=== PATIENT | male | born 1975 | race Caucasian/White ===

== ENCOUNTER → 2016-08-16 | Outpatient (CLI) | payer OTHER ==
[~2016-08-16] MED LIST: 'CLONIDINE0.1 MG PO; ACTOS45 M1 PO; ALPHAGAN P 10 M10 M1 OPH; AMLODIPINE BESYL5 MG PO; ASPIRIN ADULT L81 M1 PO; ATARAX25 MG PO; BACTRIM DS 8001 TA1 PO; BETIMOL5 M1 OP; CARVEDILOL12.5 MG PO; CEFDINIR300 MG PO; COMBIGAN 0.2%-010 ML OP; CYCLOGYL 1% OPH; ECONOPRED PLUS10 M1 OPH; ELIMITE 5%60 GM T; ERYTHROMYCIN5 MG/G2 OP; Econopred Plus 15 ML OPH; FIORINAL 325 MG1 CAP PO; GABAPENTIN100 M2 PO; GLUCOPHAGE1000 MG; GLUCOPHAGE1000 MG PO; GLUCOPHAGE500 MG PO; HUMALOG MIX 50/10 ML SC; HYDR25T PO; HYDROCODONE BIT1 T11 PO; KEFLEX500 MG PO; LEVOFLOXACIN500 MG PO; LISINOPRIL2.5 MG PO; LISINOPRIL20 MG PO; METFORMIN HCL500 MG PO; METFORMIN1000 MG PO; METFORMIN500 MG PO; MOTRIN800 MG PO; Metformin Hydr500 MG PO; OMNICEF300 MG PO; PRINIVIL10 MG PO; TRUSOPT 5 ML5 ML OPH; ULTRAM50 MG PO; ZOCOR20 MG PO; ZOFRAN ODT4 MG SL
[2016-08-16 09:59] LABS: BILIRUBIN NEGATIVE (NEGATIVE); BLOOD 2+ (NEGATIVE); CLARITY CLEAR (CLEAR); COLOR YELLOW (YELLOW); GLUCOSE 2+ (NEGATIVE); KETONE NEGATIVE (NEGATIVE); LEUKO ESTERASE NEGATIVE (NEGATIVE); NITRITE NEGATIVE (NEGATIVE); PH 5.5 (5.0-9.0); PROTEIN 3+ (NEGATIVE); SPECIFIC GRAVITY 1.025 (1.005-1.030); UROBILINOGEN 0.2 E.U./dl (0.2-1.0)
[2016-08-16 10:00] LABS: BASO # 0.1 10*3/uL (0.0-0.1); BASO % 0.8 % (0.0-1.0); EOS # 0.6 10*3/uL (0.0-0.4); EOS % 5.4 % (1.0-4.0); HEMATOCRIT 32.1 % (42.0-52.0); HEMOGLOBIN 10.4 g/dl (14.0-18.0); IG # 0.1 10*3/uL (0.0-0.1); LYMPH # 2.3 10*3/uL (1.3-4.4); LYMPH % 21.6 % (27.0-41.0); MEAN CELL VOLUME 84.9 fl (80.0-94.0); MEAN CORPUSCULAR HGB 27.5 pg (27.0-31.0); MEAN CORPUSCULAR HGB CONC 32.4 g/dl (33.0-37.0); MEAN PLATELET VOLUME 10.8 fl (9.6-12.3); MONO # 0.6 10*3/uL (0.1-1.0); MONO % 5.3 % (3.0-9.0); NEUT % 66.2 % (47.0-73.0); PLATELET COUNT AUTOMATED 279 10*3/uL (130-400); RED BLOOD COUNT 3.78 10*6/uL (4.50-5.90); RED CELL DISTRI WIDTH 14.2 % (0-14.5); WHITE BLOOD COUNT 10.6 10*3/uL (4.8-10.8)
[2016-08-16 10:05] LABS: BACTERIA TRACE; WBC 0-2 wbc/hpf (0-5)
[2016-08-16 10:22] LABS: ALBUMIN 2.5 gm/dl (3.1-4.5); PHOSPHOROUS 4.9 mg/dL (2.5-4.9); POTASSIUM 4.9 mmol/L (3.5-5.1)
[2016-08-16 11:41] LABS: PTH INTACT 149.1 pg/mL (14.0-72.0); VITAMIN D, 25-HYDROXY 11.3 ng/mL (30-100)
[2016-08-16 13:51] LABS: URINE TP/CRE RATIO 4.9 (<0.21)
== END | disposition home or self-care (01) ==
LOC: LAB 08-15 14:55
PROVIDERS: Internal Medicine Nephrology
DX: N18.3 Chronic kidney disease, stage 3 (moderate) (principal); N17.9 Acute kidney failure, unspecified

== ENCOUNTER 2016-09-06 10:42 | Inpatient (IN) | payer OTHER ==
[~2016-09-06] VITALS: Ht 180.3 cm; Wt 155.6 kg
--- NOTE | ~2016-09-06 | CON ---
[place], [place] REPORT OF CONSULTATION NAME: DUSTIN DENTON UNIT #: [id number] ROOM: 519 DOCTOR: SHANNA SWEET MD BIRTHDATE: [birth year] DOS: 09/07/2016 NEPHROLOGY CONSULTATION NOTE HISTORY OF PRESENT ILLNESS: The patient is a 41-year-old gentleman seen in renal consultation in the hospital. He is normally seen by Dr. Lim of our group and was just seen a couple weeks ago in the office. He has known proteinuric chronic kidney disease that is fairly advanced with a serum creatinine level that has been into the low 3s. His creatinine is actually slightly below his recent levels in July and August at 2.82 today. He presented to the hospital with increasing lower extremity edema and shortness of breath. This is significantly improved and he was started on diuresis, has made over 2-1/2 liters of urine output. In review of his outpatient labs and plans, serologic workup and possible biopsy was under works, but he feels well at this time and blood pressures are coming under fair control from yesterday. He does have some mild anemia, but overall is stating that his sugars are coming under better control compared to his remote past when he would have consistent blood sugars into the 300s and more. REVIEW OF SYSTEMS: Negative except for as per HPI. Past medical, family, and social history was reviewed from the H and P documented on 09/[address] Mariano. He had an echocardiogram completed, which showed a preserved EF of 55-60% and normal wall motion, mild mitral regurgitation noted. PHYSICAL EXAMINATION: VITAL SIGNS: Heart rates in the 80s-90s, respiratory rate 16-18, blood pressure 160s-170s/80s-90s, pulse ox 93-97% on room air, temp afebrile. GENERAL: Age appropriate gentleman, obese, but sitting in bed, semirecumbent without acute distress. HEENT: He has no scleral icterus. Extraocular muscles are intact. Pupils are equal. LUNGS: Fairly clear, but diminished at the bases. CARDIOVASCULAR: Regular rate. No audible rub, causes mild systolic murmur. EXTREMITIES: Has 2+ to 3+ edema of the lower extremities. ABDOMEN: Slightly distended and obese frame. No palpable tenderness, CVA tenderness or suprapubic tenderness. SKIN: Without diffuse rashes or breakdowns. GROSS NEUROLOGIC: Motor function and sensation is intact. LABORATORIES AND DIAGNOSTICS: Were reviewed from inpatient and outpatient records in detail, pertinent creatinine today is 2.82. Lytes are normal. A1c was 7. Troponins are negative x 3. 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 Last protein-creatinine ratio in August was 4.9 grams per gram. Certainly diabetic component is the most likely scenario. Further serologic workup and possible biopsy, plans per Dr. Lim as an outpatient. At this point, starting of a routine diuretic is likely necessary at this point. [place], [place] REPORT OF CONSULTATION NAME: DUSTIN DENTON UNIT #: [id number] ROOM: [facility] DOCTOR: SHANNA SWEET MD BIRTHDATE: [birth year] Continue blood pressure control and volume control and to keep him out of symptoms of congestive heart failure and volume overload with preserved ejection fraction. He has mild anemia, which is stable acceptable for his level of chronic kidney disease. Diabetes control is under fairly good control of late. Continue tight control. Cardiology and echocardiogram insight is appreciated and reviewed. Thank you very much for the kind consultation. The case was discussed with the primary team. SHANNA SWEET MD CM:CONSTR:REPORT OF CONSULTATION 2326 09/08/16 1404 interface
[2016-09-06 11:25] VITALS: BP 170/99
[2016-09-06 12:00] VITALS: BP 165/88
[2016-09-06] MEDS ORDERED: VITAMIN D50000 I3 PO (12:09)
[2016-09-06] MEDS ORDERED: SODIUM BICARBO650 MG PO (12:09)
[2016-09-06 12:12] LABS: BASO # 0.1 10*3/uL (0.0-0.1); BASO % 0.7 % (0.0-1.0); EOS # 0.4 10*3/uL (0.0-0.4); EOS % 4.9 % (1.0-4.0); HEMATOCRIT 30.7 % (42.0-52.0); HEMOGLOBIN 9.6 g/dl (14.0-18.0); LYMPH # 2.1 10*3/uL (1.3-4.4); LYMPH % 24.3 % (27.0-41.0); MEAN CELL VOLUME 87.2 fl (80.0-94.0); MEAN CORPUSCULAR HGB 27.3 pg (27.0-31.0); MEAN CORPUSCULAR HGB CONC 31.3 g/dl (33.0-37.0); MEAN PLATELET VOLUME 10.8 fl (9.6-12.3); MONO # 0.5 10*3/uL (0.1-1.0); MONO % 5.2 % (3.0-9.0); NEUT # 5.6 10*3/uL (2.3-7.9); NEUT % 64.6 % (47.0-73.0); PLATELET COUNT AUTOMATED 232 10*3/uL (130-400); RED BLOOD COUNT 3.52 10*6/uL (4.50-5.90); WHITE BLOOD COUNT 8.7 10*3/uL (4.8-10.8)
[2016-09-06 12:27] LABS: ALBUMIN 2.6 gm/dl (3.1-4.5); BILIRUBIN, TOTAL 0.1 mg/dl (0.2-1.0); POTASSIUM 4.4 mmol/L (3.5-5.1); TOTAL PROTEIN 6.9 gm/dL (6.4-8.2)
[2016-09-06] MEDS ORDERED: NORVASC10 MG PO (12:27)
[2016-09-06 16:00] VITALS: BP 186/85
[2016-09-06 18:14] LABS: CKMB 3.2 ng/ml (0.5-3.6); CPK 263 U/L (39-308); TROPONIN I < 0.015 ng/ml (<0.045)
[2016-09-06] MEDS ORDERED: COREG25 MG PO (18:20)
[2016-09-06 20:00] VITALS: BP 164/96
[2016-09-07] VITALS: BP 160/95
[2016-09-07 00:13] LABS: CKMB 2.9 ng/ml (0.5-3.6); CPK 240 U/L (39-308)
[2016-09-07 00:14] LABS: TROPONIN I < 0.015 ng/ml (<0.045)
[2016-09-07 06:11] LABS: BASO # 0.1 10*3/uL (0.0-0.1); BASO % 0.7 % (0.0-1.0); EOS # 0.5 10*3/uL (0.0-0.4); HEMATOCRIT 31.5 % (42.0-52.0); HEMOGLOBIN 10.1 g/dl (14.0-18.0); LYMPH # 1.9 10*3/uL (1.3-4.4); LYMPH % 21.4 % (27.0-41.0); MEAN CELL VOLUME 86.3 fl (80.0-94.0); MEAN CORPUSCULAR HGB 27.7 pg (27.0-31.0); MEAN CORPUSCULAR HGB CONC 32.1 g/dl (33.0-37.0); MEAN PLATELET VOLUME 10.9 fl (9.6-12.3); MONO # 0.5 10*3/uL (0.1-1.0); MONO % 5.5 % (3.0-9.0); NEUT % 67.1 % (47.0-73.0); PLATELET COUNT AUTOMATED 244 10*3/uL (130-400); RED BLOOD COUNT 3.65 10*6/uL (4.50-5.90); RED CELL DISTRI WIDTH 13.7 % (0-14.5)
[2016-09-07 06:23] LABS: CKMB 2.7 ng/ml (0.5-3.6); CPK 248 U/L (39-308)
[2016-09-07 06:24] LABS: TROPONIN I < 0.015 ng/ml (<0.045)
[2016-09-07 06:44] LABS: MAGNESIUM 1.6 mg/dL (1.5-2.1); POTASSIUM 4.2 mmol/L (3.5-5.1)
[2016-09-07 06:47] LABS: PHOSPHOROUS 3.6 mg/dL (2.5-4.9)
[2016-09-07 08:00] VITALS: BP 172/98
[2016-09-07 12:00] VITALS: BP 165/88
[2016-09-07] MEDS ORDERED: BUMETANIDE1 MG PO (14:53)
[2016-09-07 16:00] VITALS: BP 156/78
== END 2016-09-07 16:16 | disposition home or self-care (01) | DRG 291 ==
LOC: EDHOLD 10:42 → 5E 10:42
PROVIDERS: Internal Medicine
DX: I13.0 Hypertensive heart and chronic kidney disease with heart failure and stage 1 through stage 4 chronic kidney disease, or unspecified chronic kidney disease (principal); E43 Unspecified severe protein-calorie malnutrition; N18.4 Chronic kidney disease, stage 4 (severe); I50.23 Acute on chronic systolic (congestive) heart failure; Z68.42 Body mass index [BMI] 45.0-49.9, adult; D64.9 Anemia, unspecified; E78.5 Hyperlipidemia, unspecified; E66.9 Obesity, unspecified; E11.22 Type 2 diabetes mellitus with diabetic chronic kidney disease; Z87.891 Personal history of nicotine dependence; Z79.82 Long term (current) use of aspirin; Z79.4 Long term (current) use of insulin; Z79.899 Other long term (current) drug therapy

== ENCOUNTER → 2016-09-25 | Outpatient (CLI) | payer OTHER ==
[~2016-09-25] MED LIST changes: +BUMETANIDE1 MG PO; +COREG25 MG PO; +NORVASC10 MG PO; +SODIUM BICARBO650 MG PO; +VITAMIN D50000 I3 PO
[2016-09-25 09:16] LABS: BASO # 0.1 10*3/uL (0.0-0.1); BASO % 0.8 % (0.0-1.0); EOS # 0.6 10*3/uL (0.0-0.4); EOS % 6.4 % (1.0-4.0); HEMATOCRIT 34.2 % (42.0-52.0); HEMOGLOBIN 10.8 g/dl (14.0-18.0); LYMPH # 1.9 10*3/uL (1.3-4.4); LYMPH % 21.6 % (27.0-41.0); MEAN CELL VOLUME 86.1 fl (80.0-94.0); MEAN CORPUSCULAR HGB 27.2 pg (27.0-31.0); MEAN CORPUSCULAR HGB CONC 31.6 g/dl (33.0-37.0); MEAN PLATELET VOLUME 10.7 fl (9.6-12.3); MONO # 0.4 10*3/uL (0.1-1.0); NEUT % 66.9 % (47.0-73.0); PLATELET COUNT AUTOMATED 292 10*3/uL (130-400); RED BLOOD COUNT 3.97 10*6/uL (4.50-5.90); RED CELL DISTRI WIDTH 13.2 % (0-14.5); WHITE BLOOD COUNT 8.9 10*3/uL (4.8-10.8)
[2016-09-25 09:18] LABS: BILIRUBIN NEGATIVE (NEGATIVE); BLOOD 3+ (NEGATIVE); CLARITY CLEAR (CLEAR); COLOR STRAW (YELLOW); GLUCOSE 1+ (NEGATIVE); KETONE NEGATIVE (NEGATIVE); LEUKO ESTERASE NEGATIVE (NEGATIVE); NITRITE NEGATIVE (NEGATIVE); PROTEIN 3+ (NEGATIVE); UROBILINOGEN 0.2 E.U./dl (0.2-1.0)
[2016-09-25 09:27] LABS: URINE TP/CRE RATIO 4.9 (<0.21)
[2016-09-25 09:47] LABS: BACTERIA TRACE; RBC 16-20 rbc/hpf (0-2)
[2016-09-25 09:50] LABS: ALBUMIN 2.7 gm/dl (3.1-4.5); PHOSPHOROUS 3.5 mg/dL (2.5-4.9); POTASSIUM 4.6 mmol/L (3.5-5.1)
[2016-09-26 06:11] LABS: TOTAL PROTEIN, SERUM 6.5 g/dL (6.0-8.5)
[2016-09-26 08:15] LABS: HIV 1+2 AB + HIV1 P24 AG Non Reactive (Non Reactive)
[2016-09-26 08:15] LABS: COMPLEMENT C4 001834 39 mg/dL (14-44); HEPATITIS C VIRUS ANTIBODY 0.2 (0.0-0.9)
[2016-09-26 15:07] LABS: ALBUMIN, URINE 59.2 % (.); GAMMA GLOBULIN, URINE 16.8 % (.); M-SPIKE, % Not Observed % (Not Observed); PROTEIN,TOTAL - URINE RANDOM 369.6 mg/dL (Not Estab.)
[2016-09-26 16:10] LABS: A/G RATIO 0.8 (0.7-1.7); ALBUMIN 2.8 g/dL (2.9-4.4); ALPHA-1-GLOBULIN 0.2 g/dL (0.0-0.4); BETA GLOBULIN 1.1 g/dL (0.7-1.3); GAMMA GLOBULIN 1.5 g/dL (0.4-1.8); GLOBULIN, TOTAL 3.7 g/dL (2.2-3.9); M-SPIKE Not Observed g/dL (Not Observed); PE INTERPRETATION Comment: (.)
[2016-09-27 10:06] LABS: GLOMERULAR BASEMENT 082719 6 units (0-20)
[2016-09-27 12:10] LABS: FREE KAPPA LIGHT CHAINS 127.37 mg/L (3.30-19.40); FREE LAMBDA LIGHT CHAINS 104.41 mg/L (5.71-26.30); KAPPA/LAMBDA RATIO 1.22 (0.26-1.65)
[2016-09-27 14:08] LABS: ANTIPROTEINASE 3 (PR-3) ABS <3.5 U/mL (0.0-3.5)
== END | disposition home or self-care (01) ==
LOC: LAB 08:31
PROVIDERS: Internal Medicine Nephrology
DX: N18.3 Chronic kidney disease, stage 3 (moderate) (principal); N17.9 Acute kidney failure, unspecified

== ENCOUNTER → 2016-09-26 | Outpatient (CLI) | payer OTHER ==
[2016-09-26 10:30] LABS: URINE TOTAL PROTEIN CONC 338.3 mg/dL (<11.9)
== END | disposition home or self-care (01) ==
LOC: LAB 08:36
PROVIDERS: Internal Medicine Nephrology
DX: N17.9 Acute kidney failure, unspecified (principal)

== ENCOUNTER → 2016-11-27 | Outpatient (CLI) | payer OTHER ==
[2016-11-27 10:11] LABS: BASO # 0.1 10*3/uL (0.0-0.1); BASO % 0.5 % (0.0-1.0); EOS # 0.7 10*3/uL (0.0-0.4); EOS % 7.4 % (1.0-4.0); HEMATOCRIT 34.2 % (42.0-52.0); HEMOGLOBIN 10.8 g/dl (14.0-18.0); LYMPH # 2.9 10*3/uL (1.3-4.4); LYMPH % 29.6 % (27.0-41.0); MEAN CELL VOLUME 85.3 fl (80.0-94.0); MEAN CORPUSCULAR HGB 26.9 pg (27.0-31.0); MEAN CORPUSCULAR HGB CONC 31.6 g/dl (33.0-37.0); MEAN PLATELET VOLUME 10.7 fl (9.6-12.3); MONO # 0.5 10*3/uL (0.1-1.0); MONO % 5.6 % (3.0-9.0); NEUT # 5.5 10*3/uL (2.3-7.9); NEUT % 56.7 % (47.0-73.0); PLATELET COUNT AUTOMATED 268 10*3/uL (130-400); RED BLOOD COUNT 4.01 10*6/uL (4.50-5.90); RED CELL DISTRI WIDTH 12.7 % (0-14.5); WHITE BLOOD COUNT 9.6 10*3/uL (4.8-10.8)
[2016-11-27 10:12] LABS: BILIRUBIN NEGATIVE (NEGATIVE); BLOOD 1+ (NEGATIVE); CLARITY CLEAR (CLEAR); COLOR YELLOW (YELLOW); GLUCOSE NEGATIVE (NEGATIVE); KETONE NEGATIVE (NEGATIVE); LEUKO ESTERASE NEGATIVE (NEGATIVE); NITRITE NEGATIVE (NEGATIVE); PH 5.5 (5.0-9.0); PROTEIN 2+ (NEGATIVE); SPECIFIC GRAVITY 1.015 (1.005-1.030); UROBILINOGEN 0.2 E.U./dl (0.2-1.0)
[2016-11-27 10:19] LABS: URINE TP/CRE RATIO 2.7 (<0.21)
[2016-11-27 10:35] LABS: ALBUMIN 2.9 gm/dl (3.1-4.5); PHOSPHOROUS 4.9 mg/dL (2.5-4.9); POTASSIUM 4.3 mmol/L (3.5-5.1)
[2016-11-27 11:15] LABS: PTH INTACT 173.9 pg/mL (14.0-72.0); VITAMIN D, 25-HYDROXY 33.4 ng/mL (30-100)
[2016-11-27 11:34] LABS: EPITHELIAL CELLS 0-2; WBC 0-2 wbc/hpf (0-5)
== END | disposition home or self-care (01) ==
LOC: LAB 09:43
PROVIDERS: Internal Medicine Nephrology
DX: N17.9 Acute kidney failure, unspecified (principal)

== ENCOUNTER → 2017-02-15 | Outpatient (CLI) | payer OTHER ==
[2017-02-15 08:44] LABS: BILIRUBIN NEGATIVE (NEGATIVE); BLOOD TRACE-INTACT (NEGATIVE); CLARITY CLEAR (CLEAR); COLOR YELLOW (YELLOW); GLUCOSE NEGATIVE (NEGATIVE); KETONE NEGATIVE (NEGATIVE); LEUKO ESTERASE NEGATIVE (NEGATIVE); NITRITE NEGATIVE (NEGATIVE); UROBILINOGEN 0.2 E.U./dl (0.2-1.0)
[2017-02-15 08:48] LABS: BASO # 0.1 10*3/uL (0.0-0.1); BASO % 0.6 % (0.0-1.0); EOS # 0.5 10*3/uL (0.0-0.4); EOS % 6.3 % (1.0-4.0); HEMATOCRIT 29.9 % (42.0-52.0); HEMOGLOBIN 9.4 g/dl (14.0-18.0); LYMPH # 1.8 10*3/uL (1.3-4.4); LYMPH % 21.5 % (27.0-41.0); MEAN CELL VOLUME 86.9 fl (80.0-94.0); MEAN CORPUSCULAR HGB 27.3 pg (27.0-31.0); MEAN CORPUSCULAR HGB CONC 31.4 g/dl (33.0-37.0); MEAN PLATELET VOLUME 11.1 fl (9.6-12.3); MONO # 0.5 10*3/uL (0.1-1.0); MONO % 5.8 % (3.0-9.0); NEUT # 5.4 10*3/uL (2.3-7.9); NEUT % 65.6 % (47.0-73.0); PLATELET COUNT AUTOMATED 242 10*3/uL (130-400); RED BLOOD COUNT 3.44 10*6/uL (4.50-5.90); RED CELL DISTRI WIDTH 13.5 % (0-14.5); WHITE BLOOD COUNT 8.2 10*3/uL (4.8-10.8)
[2017-02-15 08:51] LABS: URINE CREATININE RANDOM 55.7 mg/dL
[2017-02-15 09:37] LABS: ALBUMIN 3.1 gm/dl (3.1-4.5); CREATININE 3.82 mg/dL (0.70-1.30); PHOSPHOROUS 4.4 mg/dL (2.5-4.9)
[2017-02-15 09:42] LABS: EPITHELIAL CELLS 0-2; WBC 0-2 wbc/hpf (0-5)
[2017-02-15 10:04] LABS: VITAMIN D, 25-HYDROXY 21.2 ng/mL (30-100)
== END | disposition home or self-care (01) ==
LOC: LAB 08:18
PROVIDERS: Internal Medicine Nephrology
DX: N17.9 Acute kidney failure, unspecified (principal); N25.81 Secondary hyperparathyroidism of renal origin

== ENCOUNTER → 2017-02-28 | Outpatient (CLI) | payer OTHER ==
[2017-02-28 09:24] LABS: POTASSIUM 4.4 mmol/L (3.5-5.1)
[2017-02-28 09:27] LABS: ALBUMIN 3.3 gm/dl (3.1-4.5); CREATININE 3.74 mg/dL (0.70-1.30); PHOSPHOROUS 4.2 mg/dL (2.5-4.9)
== END | disposition home or self-care (01) ==
LOC: LAB 08:20
PROVIDERS: Internal Medicine Nephrology
DX: N17.9 Acute kidney failure, unspecified (principal)

== ENCOUNTER → 2017-04-12 | Outpatient (CLI) | payer OTHER ==
[2017-04-12 14:37] LABS: BASO # 0.1 10*3/uL (0.0-0.1); BASO % 0.6 % (0.0-1.0); EOS # 0.5 10*3/uL (0.0-0.4); EOS % 4.2 % (1.0-4.0); HEMATOCRIT 34.3 % (42.0-52.0); HEMOGLOBIN 11.2 g/dl (14.0-18.0); LYMPH # 1.8 10*3/uL (1.3-4.4); LYMPH % 16.7 % (27.0-41.0); MEAN CELL VOLUME 84.3 fl (80.0-94.0); MEAN CORPUSCULAR HGB 27.5 pg (27.0-31.0); MEAN CORPUSCULAR HGB CONC 32.7 g/dl (33.0-37.0); MEAN PLATELET VOLUME 10.7 fl (9.6-12.3); MONO # 0.5 10*3/uL (0.1-1.0); MONO % 4.5 % (3.0-9.0); NEUT % 73.7 % (47.0-73.0); PLATELET COUNT AUTOMATED 304 10*3/uL (130-400); RED BLOOD COUNT 4.07 10*6/uL (4.50-5.90); RED CELL DISTRI WIDTH 12.2 % (0-14.5); WHITE BLOOD COUNT 10.8 10*3/uL (4.8-10.8)
[2017-04-12 15:04] LABS: ALBUMIN 3.7 gm/dl (3.1-4.5); CREATININE 4.75 mg/dL (0.70-1.30); POTASSIUM 3.7 mmol/L (3.5-5.1)
[2017-04-12 15:13] LABS: FERRITIN 417.2 ng/mL (22.0-322.0); VITAMIN D, 25-HYDROXY 81.2 ng/mL (30-100)
[2017-04-12 15:14] LABS: PTH INTACT 292.8 pg/mL (14.0-72.0)
[2017-04-12 16:15] LABS: BILIRUBIN NEGATIVE (NEGATIVE); BLOOD NEGATIVE (NEGATIVE); CLARITY SL CLOUDY (CLEAR); COLOR YELLOW (YELLOW); GLUCOSE NEGATIVE (NEGATIVE); KETONE NEGATIVE (NEGATIVE); LEUKO ESTERASE NEGATIVE (NEGATIVE); NITRITE NEGATIVE (NEGATIVE); PH 5.5 (5.0-9.0); UROBILINOGEN 0.2 E.U./dl (0.2-1.0)
[2017-04-12 16:39] LABS: BACTERIA 2+; HYALINE CAST 50-55; RBC 16-20 rbc/hpf (0-2)
== END ==
LOC: LAB 13:14
PROVIDERS: Internal Medicine Nephrology
DX: N18.4 Chronic kidney disease, stage 4 (severe) (principal); N25.81 Secondary hyperparathyroidism of renal origin; D63.1 Anemia in chronic kidney disease

== ENCOUNTER → 2017-04-24 | Outpatient (CLI) | payer OTHER ==
[2017-04-24 09:38] LABS: HEMATOCRIT 27.7 % (42.0-52.0); HEMOGLOBIN 8.8 g/dl (14.0-18.0); MEAN CELL VOLUME 87.9 fl (80.0-94.0); MEAN CORPUSCULAR HGB 27.9 pg (27.0-31.0); MEAN CORPUSCULAR HGB CONC 31.8 g/dl (33.0-37.0); MEAN PLATELET VOLUME 10.4 fl (9.6-12.3); PLATELET COUNT AUTOMATED 393 10*3/uL (130-400); RED BLOOD COUNT 3.15 10*6/uL (4.50-5.90); RED CELL DISTRI WIDTH 12.8 % (0-14.5); WHITE BLOOD COUNT 14.7 10*3/uL (4.8-10.8)
[2017-04-24 10:00] LABS: BASOPHILS 1 % (0-1); TOTAL CELLS COUNTED 100 #CELLS
[2017-04-24 10:01] LABS: PLATELET SUFFICIENCY NORMAL (NORMAL)
[2017-04-24 10:07] LABS: ALBUMIN 2.7 gm/dl (3.1-4.5); POTASSIUM 4.1 mmol/L (3.5-5.1)
[2017-04-24 10:19] LABS: CREATININE 4.75 mg/dL (0.70-1.30); TOTAL PROTEIN 8.2 gm/dL (6.4-8.2)
[2017-04-24 10:34] LABS: VANCOMYCIN TROUGH 24.6 ug/mL (10-20)
== END | disposition home or self-care (01) ==
LOC: LAB 08:06
PROVIDERS: Internal Medicine Infectious Disease
DX: A49.02 Methicillin resistant Staphylococcus aureus infection, unspecified site (principal); R78.81 Bacteremia

== ENCOUNTER → 2017-05-23 | Outpatient (CLI) | payer OTHER | END | disposition home or self-care (01) | LOC: ORTHO 01:47 | DX: M19.012 Primary osteoarthritis, left shoulder (principal) ==

== ENCOUNTER 2018-03-09 07:27 | Inpatient (IN) | payer MEDICARE, MEDICAID ==
[~2018-03-09] VITALS: Ht 180.3 cm; Wt 146.2 kg
[2018-03-09] VITALS (8 sets, daily range): BP systolic 111–168; BP diastolic 52–95
--- NOTE | ~2018-03-09 | O ---
[place], [place] OPERATIVE NOTE NAME: DUSTIN DENTON UNIT #: [id number] ROOM: [facility]- DOCTOR: LUCERO AMIN,KRALA DAVIS BIRTHDATE: [birth year] DOS: 03/14/2018 PREOPERATIVE DIAGNOSES: Recent appendectomy, pericecal abscess on CT scan with persistent leukocytosis and fever. POSTOPERATIVE DIAGNOSES: Recent appendectomy, pericecal abscess on CT scan with persistent leukocytosis and fever. PROCEDURE: Diagnostic laparoscopy, drainage of pericecal abscess and placement of drain. SURGEON: Karla Barker MD ANESTHESIA: General endotracheal. INDICATIONS: This is a 42-year-old gentleman who had appendectomy on March 10 for presumed acute appendicitis, which turned out to show perforated appendicitis with fairly large pericecal abscess and persistent cavity at the right pericolic gutter. In spite of complete mobilization of the terminal ileum and the cecum, the patient was seen to have no identifiable obvious appendiceal tissue with what appeared to be necrosis at the base of the cecum, which was stapled across, taking what was thought to be the remnant of the mesoappendix as well as then a piece of omentum which was stuck to this and in the dissection just for ease of dissection. Both specimens were removed at the time and abscess was washed out and procedure was ended. On final pathology, the patient was seen to have no viable appendiceal tissue in the specimen. He had initial improvement, but then with persistent leukocytosis and then clinical deterioration with more pain, he was taken back to the operating room for reexploration today to assure that there was not other recurrent abscess or there was not some remnant of the appendix that was not visualized. Risks, benefits, possible complications were discussed with the patient and his family at length preoperatively including the possibility of open laparotomy and informed consent was obtained. PROCEDURE NOTE: The patient was brought to the operating suite and placed on the table in supine position. Adequate conscious sedation was obtained by the anesthesia staff. Endotracheal anesthesia was induced and endotracheal tube was placed and secured. The patient was prepped and draped in usual fashion including placement of Carrero catheter and orogastric Stevens sump for bladder and gastric decompression. The abdomen was then prepped and draped in a sterile fashion. The attention was directed to the supraumbilical incision, which was infiltrated with 0.5% Marcaine and then opened. The soft tissue was bluntly dissected and the 0 PDS stitch closing the fascia at this point was easily seen. It was elevated with a hemostat and incised and the suture removed, opening the fascial closure. This was palpated digitally and easily entered into the abdominal cavity without any bowel or omentum adherent and the undersurface of the abdominal wall clearly palpable. A 12 mm port was placed in this in Sim fashion and pneumoperitoneum immediately established easily. There was some leak of air and pneumoperitoneum coming out from this and he was closed at that site with a single suture of 0 PDS to effectively compress this and maintain the [place], [place] OPERATIVE NOTE NAME: DUSTIN DENTON UNIT #: [id number] ROOM: [facility] [place] DOCTOR: KARLA BARKER MD BIRTHDATE: [birth year] pneumoperitoneum. Once this was done, the laparoscope was inserted and with a [address], the patient was placed in steep Trendelenburg position and rolled towards the laser printing operator on the patient's left side. Collection could be immediately seen in the right lower abdomen at the place of his prior appendectomy. A 5 mm trocars were then placed through the other two incisions previously used at the midline suprapubic and the left lower quadrant areas and with careful dissection, attention was directed to the pericecal area and the small bowel loops gently teased apart from the interloop adhesions and the cecum exposed. There was an abscess cavity here and in the lateral gutter on the right side in the pericolic gutter lateral to the cecum. The cecum was gently retracted and there was immediately seen a fairly large gush of pus which was suctioned away roughly again 30-40 mL. In this abscess cavity, the patient could be seen to have a large chunk of what appeared to be a fecalith and was visualized on the immediately preoperative scan done last night. The camera was switched in position and using a 12 mm stone grasper this was retrieved and delivered was in fact a fecalith of roughly 1 cm in size. This was placed away and sent as specimen. The abscess cavity was carefully explored and the patient was seen to have three other pieces of fecalith which were not visualized on the exploration. These were removed and the abscess cavity copiously irrigated with normal saline under direct visualization. The terminal ileum was inspected and had been adequately mobilized and the cecum was flipped over. The area was again carefully explored under direct visualization and no remnant of the appendix was seen. To assure that this was adequately explored, the colon was then mobilized all the way up to the hepatic flexure to completely rotate the colon in the manner of campos's maneuver from trauma surgery to completely visualize the retroperitoneal surface and there was no remnant tissue of the appendix that could be seen nor was there any viable tissue other than some necrotic fat, which was still stuck on to the cecum. The cecum was inspected and at the usual location of the tinea coli, the patient was seen to have the prior staple line from the first procedure and no evidence of leak or appendiceal remnant. The small bowel was run and the terminal ileum was followed right into the cecum. There was no Meckel's or other pathology present for 2-3 feet proximal when running the small bowel. Any interloop abscesses that were accounted were broken up and suctioned away. The pelvis was then copiously irrigated as was the right pericolic gutter with saline and suctioned dry. Because of his prior episode, decision was made to place a drain. The patient had a 19 mm round drain brought out through his suprapubic incision, under direct visualization placed along the left gutter and secured in place with 3-0 nylon. The colon was allowed to fall back over top of this to drain the gutter in the area of the recurrent abscess. There was no further pathology. Pneumoperitoneum was released and the trocars were removed. The fascia at the supraumbilical site was closed once more with [id number] 0 PDS to affect fascial closure. This incision and the other 5 mm trocar sites were then closed with subdermal 3-0 Vicryl to the larger incision, then 5-0 Monocryl and Dermabond to the left lower quadrant and to the additional 5 mm subxiphoid 5 mm trocar site, which was placed during the procedure in order to allow another angle of visualization and to assure that there was no appendiceal remnant present, which was not found. The only contents were some debris and fibrin and necrotic fat from the abscess cavity, which were handed off as specimen as well as 3 or 4 fecalith specimens, which were clearly visualized on [place], [place] OPERATIVE NOTE NAME: DUSTIN DENTON UNIT #: [id number] ROOM: [facility] [place] DOCTOR: LUCERO AMIN,KARLA DAVIS BIRTHDATE: [address] and are not the appendix as previously determined on the initial CT reading of the and first and second scans. Given the patient's previous respiratory issues immediately postop on his first procedure, he was taken back to the ICU still intubated and we will wean him there once he was allowed to recover further from his sedation. He had been fairly sedated from his anesthetic previously. Carrero catheter and orogastric Stevens sump were left in place and will be removed prior to extubation, will be left in place to monitor the patient and decompress the gastric pouch as well as monitor urine output. KARLA BARKER MD CM:OPRECORD:OPERATIVE NOTE [id number] KARLA BARKER MD 03/15/18 1245 interface
--- NOTE | ~2018-03-09 | PR ---
[place], [place] PROGRESS NOTE NAME: DUSTIN DENTON UNIT #: [id number] ROOM: 424 DOCTOR: SUZETTE MOSQUEDA MD,DARLENE BIRTHDATE: [birth year] DOS: 03/21/2018 PULMONARY PROGRESS NOTE SUBJECTIVE: The patient has been resting comfortably. Refused to use the CPAP, has last BiPAP last night. He denies symptoms of chest pain, fever, or chills. He denies any coughing or sputum expectoration. He was stating that he might be discharged home today. OBJECTIVE: VITAL SIGNS: The vital signs of the patient, which has been recorded showed the temperature is noted as normal, respiratory rate is 18, heart rate is 79, and blood pressure is 123/60. Pulse oxygen saturation recorded on room air is 96% saturation. HEENT: On examination, no acute change. NECK: Supple. Head was atraumatic. CARDIOVASCULAR: S1, S2 audible. LUNGS: Without any wheeze or crackles. ABDOMEN: Soft and obese. EXTREMITIES: Without acute edema. IMPRESSION: Stable respiratory status, resolution of acute hypoxic respiratory failure postsurgery suspected diagnosis of obstructive sleep apnea disorder, require further assessment, the patient wishes. PLAN OF MANAGEMENT: No changes in the plan of care at this time. Continue current plan of care as in progress. Discharge home as per plan of the surgery staff. DARLENE BRADFORD MD CM:PNTRANS [id number] DARLENE MOSQUEDA MD 03/21/18 2334 interface
--- NOTE | ~2018-03-09 | CON ---
[place], [place] REPORT OF CONSULTATION NAME: DUSTIN DENTON UNIT #: [id number] ROOM: 506 DOCTOR: FROY SR MD BIRTHDATE: [birth year] DOS: NEPHROLOGY CONSULTATION REASON FOR CONSULTATION: Management of dialysis/the patient known to you. HISTORY OF PRESENT ILLNESS: This is a 42-year-old male. He has past medical history of end-stage renal disease. He is on dialysis Saturday, and Saturday at [facility] in [place] under the care of our practice. He previously had seen Dr. Rodriguez of our group for chronic kidney disease. He has a history of morbid obesity, hypertension, diabetes. He presented to the hospital early this morning. He came in with right-sided sharp abdominal pain. Seems he is having referred pain to the shoulder as well. He had a CT scan, which revealed acute appendicitis. My understanding is that he is going to the OR today. I had seen him, he was awake, alert, but in obvious pain. He has received morphine and at modest amount, but it was not completely resolving his pain issues. He denied any shortness of breath to me. There are no reports of diarrhea, chills or night sweats or rashes. The patient seems to have had dialysis yesterday. His next treatment will be on Saturday. He did have a low-grade fever. There are no reports of dysuria or hematuria. ALLERGIES: No known drug allergies reported. MEDICATIONS: Include Combigan eye drops, sodium bicarbonate, vitamin D, amlodipine, Coreg, lisinopril, insulin, aspirin, Neurontin. PAST MEDICAL HISTORY: 1. End-stage renal disease, on hemodialysis as stated above. 2. Upper extremity AV fistula. 3. Hypertension. 4. Diabetes. 5. Diabetic neuropathy. 6. Anemia of chronic disease. 7. Previous history of nephrotic range proteinuria. 8. History of colonoscopy. 9. Hyperlipidemia. 10. Apparent TIA. 11. History of eye surgery. FAMILY HISTORY: There are no reports of chronic kidney disease that I can gather, otherwise noncontributory. SOCIAL HISTORY: No current tobacco, alcohol or illicit drugs. He previously has a history of smoking. REVIEW OF SYSTEMS: As per HPI, otherwise, a 10-point review of systems was reviewed and was negative or limited due to his current status. PHYSICAL EXAMINATION: VITAL SIGNS: T-max 100.9, pulse is 100, respiratory rate 20. Systolic blood [place], [place] REPORT OF CONSULTATION NAME: DUSTIN DENTON UNIT #: [id number] ROOM: 506 DOCTOR: FROY SR MD BIRTHDATE: [birth year] pressures in the 160s. GENERAL: He is awake, alert, lying in bed, in modest distress. HEENT: Shows no JVD. Sclerae are anicteric. Mucous membranes are somewhat dry. Pharynx is clear. NECK: Supple. Trachea is midline. There is no neck lymphadenopathy or thyromegaly. LUNGS: Diminished breath sounds with no wheeze. There is no tactile fremitus. He is not using accessory muscles of respiration. HEART: Tachycardic, S1, S2. No rub, thrill or gallop. ABDOMEN: Obese, soft with some mild tenderness. I did not appreciate organomegaly. EXTREMITIES: Had trace edema. There is no lower extremity lymphadenopathy. Distal pulses are 2+. SKIN: Showed an overt rash. There is no petechia or purpura. Skin temperature is warm. NEUROLOGIC: He is awake, alert. He was moving his extremities, following commands. LABORATORY DATA: Hemoglobin 12.5, white count of 14,000, platelets 238. Sodium 137, potassium 4.0, BUN 54, creatinine 4.99, glucose 195, calcium 8.6, albumin 3.4. IMPRESSION: 1. End-stage renal disease, on hemodialysis Saturday, and Saturday through an upper extremity AV fistula. 2. Abdominal pain with CT findings consistent with acute appendicitis. 3. Diabetes mellitus. 4. Hypertension. 5. Leukocytosis. 6. Anemia of chronic disease. PLAN: 1. We will plan for dialysis on Saturday as per his normal schedule. 2. Dose meds for end-stage renal disease. 3. Await OR plans. Pain control. 4. Antibiotics per the primary service. 5. Continue supportive care. Thank you for this consultation. We will follow with you. [place], [place] REPORT OF CONSULTATION NAME: DUSTIN DENTON UNIT #: [id number] ROOM: 506 DOCTOR: FROY SR MDDATE: [birth year] FROY SR MD CM:CONSTR:REPORT OF CONSULTATION 1133 03/09/18 2111 interface
--- NOTE | ~2018-03-09 | CON ---
[place], [place] REPORT OF CONSULTATION NAME: DUSTIN DENTON UNIT #: [id number] ROOM: 424 DOCTOR: SUZETTE MOSQUEDA MD,DARLENE BIRTHDATE: [birth year] DOS: 03/15/2018 PULMONARY CRITICAL CARE EVALUATION AND MANAGEMENT REASON FOR PULMONARY CONSULTATION: Acute postoperative respiratory failure. Consultation requested by the hospital services. The history could not be obtained from the patient, since the patient is currently intubated on mechanical ventilator. No family members were available at the bedside as all the consultation. The patient's history is contained for documentation. Reviewed the patient by the other physician note and the nurse's notes. HISTORY OF PRESENT ILLNESS: This is a 42-year-old male with longstanding history of end-stage renal failure, hemodialysis with history of diabetes mellitus and hypertension. The patient presented to the hospital. The patient admitted to the hospital on the date of 03/09/2018 with ongoing pain, which has been noted about a couple of weeks ago. The patient has been assessed. The patient admitted to the hospital for further medical management. Investigation was done, suspected with diagnosis of acute appendicitis for this patient. The patient underwent laparoscopic appendectomy on the 03/10/2018. Post-extubation, the patient noted difficulty of oxygen maintenance, was noted 100% oxygen supplementation with a nonrebreather mask transferred to the Intensive Care Unit where he has been gradually weaned off the oxygen to 2 liters, transferred to medical floor. The patient was readmitted to the intensive care. The patient developed severe hypertension during the hemodialysis. The patient was reassessed. CT scan of the abdomen and pelvis repeated suggest a possibility of abscess formation in the abdomen. The patient underwent second laparoscopy of the abdomen, PHILLIP drain was inserted. The patient has been currently intubated, operatively the patient remains on mechanical ventilator. Because of the previous episodes of severe hypoxia post-extubation and in the first time on this month. Currently, the patient intubated, noted on assist control, volume control, mechanical ventilation with 40% oxygen supplementation ongoing. He has been sedated with intravenous Diprivan, receiving hemodialysis at the bedside. Hemodynamically, the patient has been noted to be stable. The patient did not require any vasopressor support at the present time. He had not been noted with excessive secretion production from the endotracheal tube as well. REVIEW OF SYSTEMS: Could not be completed since the patient is currently intubated, remains on the mechanical ventilator. PAST MEDICAL HISTORY: 1. History of chronic morbid obesity. 2. Longstanding essential hypertension. 3. End-stage renal failure for the past few years, on hemodialysis with nonadherence with the treatment intermittently. 4. Longstanding type 2 diabetes mellitus. 5. Blindness of the right eye for the patient was also noted as well. 6. History of hyperlipidemia. 7. Past history of transient ischemic attack. 8. Diabetic nephropathy. [place], [place] REPORT OF CONSULTATION NAME: DUSTIN DENTON UNIT #: [id number] ROOM: [facility] DOCTOR: DARLENE MARTINEZ MD BIRTHDATE: [birth year] SOCIAL HISTORY: The patient is , lives at home, has not been noted with active tobacco use reported former tobacco use for the patient. Exact details at this time were unknown. PAST SURGICAL HISTORY: 1. Noted with fistula formation of the left upper extremity for hemodialysis. 2. Laparoscopic appendectomy and reexploration with laparoscopy again first on 03/10/2018 and then on 03/14/2018. FAMILY HISTORY: The patient's father , unknown medical illnesses. Mother is 76-year-old with history of diabetes mellitus. CURRENT MEDICATIONS: 1. Administered for this hospitalization, active use of heparin for DVT prophylaxis, Lasix 80 mg every Saturday, and Saturdays by mouth. 2. Paxil 10 mg Saturday, Saturday, and Saturday. 3. P.r.n. use of intravenous albumin. 4. Tradjenta 5 mg daily. 5. Norvasc 10 mg daily. 6. Aspirin low dose 81 mg daily. 7. Hydralazine 50 mg p.o. b.i.d. 8. Coreg 25 mg p.o. b.i.d. 9. Timolol eyedrops. 10. Gabapentin 100 mg p.o. b.i.d. 11. Chlorhexidine rinse. 12. Hydromorphone for the patient, intravenous p.r.n. use. 13. IV propofol. 14. IV Zosyn. 15. Tylenol p.r.n. and some other medications. DRUG ALLERGIES: The patient noted no known drug allergies. PHYSICAL EXAMINATION: GENERAL: This is a 42-year-old white male who is currently intubated on mechanical ventilator without any acute distress at this time, sedated adequately with Diprivan. VITAL SIGNS: Height of 5 feet 11 inches, weight of 312 pounds with BMI of 43. Vital signs of the patient which has been recorded shows temperature noted normal. The patient's respiratory rate was 19-18, heart rate 75-93. The patient with normal sinus rhythm, blood pressure 111/45, 127/58. Pulse oxygen saturation of the patient was noted as 40% is 95% saturation, 50% previously was 97% saturation. HEENT: Head was atraumatic. Eyes: No icterus. NECK: Supple. It was obese. CARDIOVASCULAR SYSTEM: S1, S2 is audible. LUNGS: The patient was noted without any wheeze or crackle. ABDOMEN: Noted with chronic obesity, hyperactive bowel sounds. SKIN: The patient has no lesions or rashes. EXTREMITIES: The patient noted without any acute edema. MUSCULOSKELETAL: Without acute deformities. [place], [place] REPORT OF CONSULTATION NAME: DUSTIN DENTON UNIT #: [id number] ROOM: [facility] DOCTOR: SUZETTE MOSQUEDA MD,[facility] BIRTHDATE: [birth year] CENTRAL NERVOUS SYSTEM: The patient was sedated. Prior to the current surgery intubation and mechanical ventilation. Mental status has been reported as normal without any focal deficit. LABORATORY DATA: Arterial blood gas this morning, pH of 7.34, pCO2 of 35, pO2 115. Assist control, volume control, mechanical ventilation, tidal volume 600 mL, rate of 18. The CBC of 03/15/2018, WBC count 19.2, hemoglobin 9.5, hematocrit 30.5, platelet count was normal. BMP this morning, the patient prior to dialysis, glucose 154, BUN 17, creatinine 6.07. Sodium 133. Arterial blood gas suggested, pH of 7.27, pCO2 45, pO2 91. Prior to that the pH is 7.16, pCO2 66, pO2 136. At that time, tidal volume was 400 mL. The blood culture shows no bacterial growths. Pertinent radiology data reviewed from the pulmonary standpoint. The chest x-ray done this morning, endotracheal tube, normal position. NG tube in the stomach without any acute pulmonary infiltration. Small haziness was noted left lower lobe, may be related to the possibility of dialysis. Chest x-ray yesterday showed the similar findings. CT scan of abdomen and pelvis that was done on 03/13/2018. Low portion CT of the thorax, shows small basilar areas of atelectasis was noted, greater on the right than the left side without any acute pulmonary infiltration or pleural effusions. However, the radiologist report despite the patient findings with stranding surrounding the tissue. Mesoappendix still described by the radiologist and finding suggestive of acute appendicitis. IMPRESSION: 1. The patient was currently noted status post appendectomy with possible exacerbation, disintegration of the appendix with acute postoperative respiratory failure. 2. Chronic morbid obesity. 3. Strong suspicion of obstructive sleep apnea disorder. 4. The patient with end-stage renal failure, currently receiving hemodialysis. 5. History of diabetic nephropathy. 6. The patient with a history of type 2 diabetes mellitus, noted moderately uncontrolled as well. 7. Morbid obesity, history of essential hypertension as well. PLAN OF MANAGEMENT: Upon completion of hemodialysis. Discontinue sedation completely. PLAN OF TREATMENT: The patient will be started on CPAP of 5, pressure support 10 for 2 hours. Arterial blood gases will be obtained if noted acceptable with good clinical status. The patient will be extubated and started on the BiPAP, postoperatively patient to manage and suspected obstructive sleep apnea disorder and respiratory support. Continuation of the bronchodilator, the treatment therapy, plan of management and ventilator bundle management until then. Usual care, other supportive plan of management, care plan. Supportive care, other therapy, plan of care. Continue antibiotics for the current surgery with possibility of appendix perforation, abscess formation for the coverage of gram-negative or enteric organism and anaerobic organism with IV Zosyn adjusted to his kidney functions. [place], [place] REPORT OF CONSULTATION NAME: DUSTIN DENTON UNIT #: [id number] ROOM: 424 DOCTOR: DARLENE MARTINEZ MD BIRTHDATE: [birth year] Total time spent in pulmonary and critical evaluation and management was 38 minutes. DARLENE BRADFORD MD CM:CONSTR:REPORT OF CONSULTATION 1349 04/02/18 0735 interface
--- NOTE | ~2018-03-09 | O ---
[place], [place] OPERATIVE NOTE NAME: DUSTIN DENTON UNIT #: [id number] ROOM: 424 DOCTOR: KARLA BARKER MD SUSAN BIRTHDATE: [birth year] DOS: 03/10/2018 PREOPERATIVE DIAGNOSES: Right lower quadrant pain, leukocytosis, abnormal CAT scan and chronic renal failure. POSTOPERATIVE DIAGNOSES: Right lower quadrant pain, leukocytosis, abnormal CAT scan and chronic renal failure and additionally acute appendicitis. PROCEDURE: Diagnostic laparoscopy and appendectomy. SURGEON: Karla Barker MD CLASSROOM COORDINATOR: SALVADOR Rascon. ANESTHESIA: General endotracheal and TAP block. INDICATIONS: This is a 42-year-old gentleman with chronic renal failure, who presented with a history of abdominal pain that started early in the morning of admission with a pain of 10/10. He was seen initially in the Emergency Room denying any symptomatic complaints other than his discomfort. He had had dialysis on Saturday, which he only did for two of his usual 4 hours. He subsequently presented with clinical findings of appendicitis in the Emergency Room and was placed on antibiotic therapy after admission and was resuscitated with intravenous fluids. He is now for appendectomy with the risks, benefits, possible complications of the procedure, discussed with the patient at the bedside preoperatively on the morning of the procedure. DESCRIPTION OF PROCEDURE: The patient was brought to the operating suite and placed on the table in supine position. Adequate anesthesia was obtained by the anesthesia staff. Endotracheal anesthesia was induced and endotracheal tube was placed and secured. Abdomen was prepped and draped in the usual sterile fashion including placement of Carrero catheter and orogastric Mcmullen sump for bladder and gastric decompression. The nasogastric tube did not decompress significantly preoperatively either. The patient otherwise had no significant findings on the clinical examination initially other than right lower quadrant pain. There was no mass effect felt in the right lower quadrant. Once he was intubated and asleep, the abdomen was then prepped and draped in the usual sterile fashion including placement of Carrero catheter and orogastric Mcmullen sump for bladder and gastric decompression. Abdomen was then entered through a small supraumbilical incision, carried bluntly to the rectus fascia. On carrying this down, the patient was seen to have actually a small umbilical hernia, which then with electrocautery the sac was amputated. An open pneumoperitoneum was established, placing a 12 mm Endopath trocar through this opening at the umbilical ring and establishing open pneumoperitoneum with 3 liters carbon dioxide flow per minute. Laparoscope was inserted. Intraperitoneal placement was confirmed. The attention was directed to placement of trocars in the suprapubic region and in the left lower quadrant, both done under direct visualization with the laparoscope. The laparoscopy ensued and the patient was seen immediately to have some pus in the right lower abdomen and in the pelvis, which was suctioned away, once the additional trocars were placed. This was copiously irrigated and [place], [place] OPERATIVE NOTE NAME: DUSTIN DENTON UNIT #: [id number] ROOM: 424 DOCTOR: KARLA BARKER MD BIRTHDATE: [birth year] suctioned dry. The attention was directed to the right colon and to the distal terminal ileum, which was followed back to the colon and then seen that there is no Meckel's diverticulum. Changes consistent with appendicitis were present and through a fairly protracted effort with the patient in steep Trendelenburg position and rolled towards the patient's left side, the cecum was mobilized completely and the patient was seen to have a large pad of fat wrapping around what is presumably the appendix. There are gangrenous changes present though this is again mostly fat wrapping and there was really a fairly small appendiceal specimen. There is however pus as well as fibrin deposition on this tissue and it undoubtedly appears to be the appendix. The attention was then directed to the site and the mesoappendix taken down with the LigaSure device. The base of the appendix was then transected using a 60 mm [place] linear cutting stapler. There was also a large chunk of omentum which was taken down as well in exposing this. It was then placed in a specimen pouch through the umbilical trocar site and removed through this along with a small patch of necrotic omentum, which was removed as well. These were handed off and placed in formalin. Attention was directed to the base of the cecum and it was seen to be hemostatic. The right lower abdomen and gutters were then washed out copiously with normal saline solution and with no further pathology, attention was directed to closure. Pneumoperitoneum was released. The fascia at the supraumbilical site was closed with a [id number] suture of 0 PDS. This incision and the other three sites were then closed with 5-0 Monocryl and Duramax. The patient is already on antibiotics with dose adjustment for his renal failure. All sponge, needle and instrument counts were correct at the end of the procedure. He went to recovery room after extubation in satisfactory condition. KARLA BARKER MD CM:OPRECORD:OPERATIVE NOTE [id number] KARLA BARKER MD 03/31/18 1133 interface
--- NOTE | ~2018-03-09 | PR ---
[place], [place] PROGRESS NOTE NAME: DUSTIN DENTON UNIT #: [id number] ROOM: 424 DOCTOR: SUZETTE MOSQUEDA MD,DARLENE BIRTHDATE: [birth year] DOS: 03/19/2018 SUBJECTIVE: The patient has been noted with reduction in symptoms of abdominal pain. Testing was performed for the current ongoing ileus and constipation. The patient has moved the bowels per nursing staff. He has refused to use the BiPAP at nighttime. He has not been noted symptoms of shortness of breath, coughing, wheezing, or chest pain. OBJECTIVE: VITAL SIGNS: Normal temperature, respiratory rate 14, heart rate 79, blood pressure is 108/67. The pulse oxygen saturation recorded as 97% O2 saturation on 2 liters nasal cannula. HEENT: Examination shows head was atraumatic. Eyes nonicterus. NECK: Supple. CARDIOVASCULAR: S1, S2 is audible. LUNGS: Without any wheeze or crackles. ABDOMEN: Soft, nontender. Bowel sounds present. EXTREMITIES: Without any acute edema. IMPRESSION: 1. The patient with acute respiratory failure, which has been resolving at the present time. 2. Status post abdominal surgery with laparoscopy, acute appendicitis and appendectomy. PLAN OF TREATMENT: No changes in the plan of management at this time. Continue the patient's current therapy, plan of management. Bronchodilators as needed use. The patient's current use of BiPAP. The case was discussed with the patient's spouse. Encouraged the patient to use the BiPAP that has been refused by the patient at night. DARLENE BRADFORD MD CM:PNTRANS [id number] DARLENE MOSQUEDA MD 04/02/18 0738 interface
--- NOTE | ~2018-03-09 | PR ---
[place], [place] PROGRESS NOTE NAME: DUSTIN DENTON UNIT #: [id number] ROOM: 424 DOCTOR: SUZETTE MOSQUEDA MD,DARLENE BIRTHDATE: [birth year] DOS: 03/20/2018 SUBJECTIVE: The patient was not noted with any ongoing acute complaints, ambulating. The patient noted reduction of the shortness of breath. The BiPAP has been ordered to be used at night. He has been currently treated in the telemetry floor. OBJECTIVE: VITAL SIGNS: Normal temperature, respiratory rate 18, heart rate 82, blood pressure 140/74, pulse oxygen saturation on room air 94% saturation. HEENT: Chronic obesity. NECK: Supple and obese. CARDIOVASCULAR: S1, S2 audible. EXTREMITIES: Without any edema, clubbing, or cyanosis. IMPRESSION: 1. Stable respiratory status, resolving acute postoperative hypoxic respiratory failure. 2. Suspected obstructive sleep apnea disorder. 3. Status post laparoscopy for acute appendicitis. PLAN OF MANAGEMENT: No change in plan of management. Continue surgical care. Encouraged the patient to use BiPAP at nighttime. Other therapy, plan of management, and care plan. DARLENE BRADFORD MD CM:PNTRANS [id number] DARLENE MOSQUEDA MD 03/20/181708 interface
--- NOTE | ~2018-03-09 | PR ---
[place], [place] PROGRESS NOTE NAME: DUSTIN DENTON UNIT #: [id number] ROOM: [facility] DOCTOR: SUZETTE MOSQUEDA MD,DARLENE BIRTHDATE: [birth year] DOS: 03/17/2018 SUBJECTIVE: The patient noted comfortable at this time without any acute distress, has not been noted any ongoing acute new respiratory complaints this morning, sitting on side of the bed this morning and later on the chair. The BiPAP to be used at night. OBJECTIVE: VITAL SIGNS: Normal temperature to 99.6 degrees Fahrenheit, respiratory rate 20, heart rate of 90, blood pressure 134/76 this morning. Pulse oxygen saturation on 2 liters 96% saturation. HEAD, EYES, EARS, NOSE, AND THROAT: Abdomen chronic severe obesity. Head was atraumatic. NECK: Supple. CARDIOVASCULAR: S1, S2 audible. LUNGS: Noted without any wheezing or crackles. ABDOMEN: Soft and obese. EXTREMITIES: Mild edema. LABORATORY DATA: BMP: BUN 61, creatinine 5.05, sodium 131, potassium 3.4. IMPRESSION: Resolving acute respiratory failure, successful liberation of mechanical ventilator with the current abdominal surgery. Mild leukocytosis was also noted. End-stage renal failure, on regular hemodialysis. PLAN OF MANAGEMENT: No changes in the plan of care, pulmonary standpoint, the patient is responding to treatment, doing very well, treated with the BiPAP for suspected obstructive sleep apnea disorder at night. DARLENE BRADFORD MD CM:PNTRANS [id number] DARLENE MOSQUEDA MD 03/17/18 1150 interface
--- NOTE | ~2018-03-09 | PR ---
[place], [place] PROGRESS NOTE NAME: DUSTIN DENTON UNIT #: [id number] ROOM: 424 DOCTOR: SUZETTE MOSQUEDA MD,DARLENE BIRTHDATE: [birth year] DOS: 03/16/2018 SUBJECTIVE: The patient was liberated from 10:20 yesterday. The patient remains in intensive care unit, currently sitting on the chair. The oxygen coverage given with 4 liter nasal cannula this morning, saturating very well. He has not been noted any symptoms of chest pain or acute shortness of breath. The patient does have symptoms of wheezing. There was no abdominal pain. The remaining review of systems was noted negative. OBJECTIVE: VITAL SIGNS: The patient showed normal temperature, respiratory rate of 13-20, heart rate 21-84, and blood pressure 130/70. Pulse oxygen saturation on 4 liters nasal cannula 90-93% saturation. HEENT: Head was atraumatic. Eyes nonicterus. NECK: Supple. CARDIOVASCULAR: S1, S2 audible. LUNGS: Noted without any wheeze or crackles. ABDOMEN: Soft, nontender. EXTREMITIES: Without acute edema. MUSCULOSKELETAL: Without acute deformities. CENTRAL NERVOUS SYSTEM: Intact. LABORATORY DATA: The patient's CBC today, WBC count 50, hemoglobin 9.5, hematocrit 29.7, platelet count of 342,000. CMP of the patient noted with BUN 48, creatinine 2.95, glucose 133. Sodium 135, potassium 3.4, chloride of 95. Blood culture from 03/10/2018, no bacterial growth, final results. IMPRESSION: 1. The patient with successful liberation of mechanical ventilation for acute postoperative respiratory failure after current laparoscopy of the abdomen for the assessment of the abscess, post recent surgery of appendectomy. 2. Chronic obesity. 3. Suspected obstructive sleep apnea disorder as well. 4. Diabetic nephropathy. 5. End-stage renal failure, regular hemodialysis. PLAN: OF TREATMENT. Hemodialysis per order from [facility]phrology [facility]. Oxygen supplementation, pulse oxygen 90% or greater. Use of the BiPAP at nighttime and p.r.n. during the day. Correction of the electrolytes. Monitoring for anemia as well no transfusion would be necessary. Continue DVT prophylaxis. Bronchodilator to help mobilize secretions. Usual care, other supportive plan of care and therapies. Other additional treatment changes will be made based on progression of the illness. [place], [place] PROGRESS NOTE NAME: DUSTIN DENTON UNIT #: [id number] ROOM: 424 DOCTOR: DARLENE MARTINEZ MD BIRTHDATE: [birth year] DARLENE BRADFORD MD CM:PNTRANS [id number] DARLENE MOSQUEDA MD 04/02/18 0736 interface
--- NOTE | ~2018-03-09 | EKG ---
[place], [place] ELECTROCARDIOGRAM REPORT NAME: DUSTIN DENTON UNIT #: [id number] ROOM: [facility] DOCTOR: KRISTIE DRAFT REPORT BIRTHDATE: [birth year] [facility] Test Date: 2018-03-09 Test Time: 08:11:51 Pat Name: DUSTIN DENTON Department: Room: [facility] Gender: M [employer]: BEN : 1975 Requested By: RYLAN LARA Order Number: [id number] Reading MD: Kasi Pisano MD Measurements Intervals [place] Rate: 103 P: 34 WA: 143 QRS: 9 QRSD: 85 T: 37 QT: 326 QTc: 427 Interpretive Statements Sinus tachycardia Baseline wander in lead(s) V4 Electronically Signed On 03-10-2018 18:51:32 PDT by Kasi Pisano MD CM:EKGRPT:ELECTROCARDIOGRAM REPORT 0811 1851 RYLAN FLOWERS DRAFT REPORT RYLAN LARA MD
--- NOTE | ~2018-03-09 | PR ---
[place], [place] PROGRESS NOTE NAME: DUSTIN DENTON UNIT #: [id number] ROOM: [facility] DOCTOR: SUZETTE MOSQUEDA MD,DARLENE BIRTHDATE: [birth year] DOS: 03/18/2018 SUBJECTIVE: The patient was noted comfortable at this time from the pulmonary standpoint, used the BiPAP last night, noted with abdominal pain and constipation, given the enema with medical management for constipation possibly causing the pain in the abdomen. She was noted awake and alert, sitting this morning on the bed. OBJECTIVE: VITAL SIGNS: Normal temperature 99.3 Fahrenheit, respiratory rate of 15, heart rate of 83, blood pressure 136/46. The pulse oxygen saturation recorded as 95% on 4 liters nasal cannula at rest. HEENT: Chronic obesity. Head was atraumatic. Eyes: No icterus. NECK: Supple. CARDIOVASCULAR: S1, S2 is audible. LUNGS: The patient was noted without any wheezing or crackles at the present time. ABDOMEN: Soft with chronic obesity. Bowel sounds are present. EXTREMITIES: The patient was noted with chronic obesity, mild edema. IMPRESSION: The patient is stable, respiratory status, pulmonary standpoint with respiratory failure, using oxygen supplementation, obstructive sleep apnea disorder suspicions, treated with the BiPAP. PLAN OF TREATMENT: No changes in plan of care for the patient at this time. Continue current therapy, plan of management care and treatment plan of care. DARLENE BRADFORD MD CM:PNTRANS 1405 180 DARLENE MOSQUEDA MD 03/18/18 180 interface
--- NOTE | ~2018-03-09 | EKG ---
[place], [place] ELECTROCARDIOGRAM REPORT NAME: DUSTIN DENTON UNIT #: [id number] ROOM: [facility] DOCTOR: KRISTIE DRAFT REPORT BIRTHDATE: [birth year] [facility] Test Date: 2018-03-13 Test Time: 14:12:25 Pat Name: DUSTIN DENTON Department: Room: [facility] Gender: M Ice Skater: Cecilia Estrada : 1975 Requested By: MILADY PRESSLEY Order Number: [id number] Reading MD: Syed Guallpa MD Measurements Intervals [place] Rate: 90 P: 168 MS: 145 QRS: 180 QRSD: 90 T: 157 QT: 354 QTc: 433 Interpretive Statements Right and left arm electrode reversal, interpretation assumes no reversal Sinus or ectopic atrial rhythm Baseline wander in lead(s) V3,V4,V5 Compared to ECG 03/09/2018 08:11:51 Ectopic atrial rhythm now present Myocardial infarct finding now present Sinus tachycardia no longer present Electronically Signed On 03-17-2018 8:39:27 PDT by Syed Guallpa MD CM:EKGRPT:ELECTROCARDIOGRAM REPORT [id number] MILADY GUTIERRES DRAFT REPORT MILADY PRESSLEY DO
[2018-03-09 07:47] LABS: BASO # 0.1 10*3/uL (0.0-0.1); BASO % 0.4 % (0.0-1.0); EOS # 0.1 10*3/uL (0.0-0.4); EOS % 0.9 % (1.0-4.0); HEMATOCRIT 38.3 % (42.0-52.0); HEMOGLOBIN 12.5 g/dl (14.0-18.0); LYMPH # 1.1 10*3/uL (1.3-4.4); LYMPH % 7.7 % (27.0-41.0); MEAN CELL VOLUME 90.8 fl (80.0-94.0); MEAN CORPUSCULAR HGB 29.6 pg (27.0-31.0); MEAN CORPUSCULAR HGB CONC 32.6 g/dl (33.0-37.0); MEAN PLATELET VOLUME 9.7 fl (9.6-12.3); MONO # 0.3 10*3/uL (0.1-1.0); MONO % 2.1 % (3.0-9.0); NEUT # 12.4 10*3/uL (2.3-7.9); NEUT % 88.3 % (47.0-73.0); PLATELET COUNT AUTOMATED 238 10*3/uL (130-400); RED BLOOD COUNT 4.22 10*6/uL (4.50-5.90); RED CELL DISTRI WIDTH 13.2 % (0-14.5)
[2018-03-09 08:05] LABS: ALBUMIN 3.4 gm/dl (3.1-4.5); ALKALINE PHOSPHATASE 88 U/L (45-117); BUN 54 mg/dl (7-24); CHLORIDE 101 mmol/L (98-107); CREATININE 4.99 mg/dL (0.70-1.30); LIPASE 278 U/L (73-393); SGOT/AST 13 IU/L (3-35); SGPT/ALT 18 U/L (12-78); SODIUM 137 mmol/L (136-145); TOTAL PROTEIN 9.1 gm/dL (6.4-8.2)
[2018-03-09 08:07] LABS: TROPONIN I < 0.015 ng/ml (<0.045)
[2018-03-09 08:14] LABS: ACT PARTIAL THROMBO TIME 22.4 SECONDS (20.8-31.5); INTERNATIONAL NORM RATIO 0.9 (2.0-3.5)
[2018-03-09] MEDS ORDERED: PAXIL10 MG PO (11:35)
[2018-03-09] MEDS ORDERED: Lasix80 MG PO (11:39)
[2018-03-09] MEDS ORDERED: HYDRALAZINE HYD50 MG PO (11:40)
[2018-03-09] MEDS ORDERED: TRAD5TAB1 PO (11:42)
[2018-03-09] MEDS ORDERED: INSULIN LISPRO (17:50)
[2018-03-09] MEDS ORDERED: INSULIN LISPRO PROTAMINE (17:50)
[2018-03-10] VITALS (14 sets, daily range): BP systolic 119–151; BP diastolic 58–88
[2018-03-10 06:25] LABS: BASO % 0.2 % (0.0-1.0); EOS # 0.1 10*3/uL (0.0-0.4); EOS % 0.3 % (1.0-4.0); HEMATOCRIT 32.6 % (42.0-52.0); LYMPH # 1.3 10*3/uL (1.3-4.4); LYMPH % 7.3 % (27.0-41.0); MEAN CELL VOLUME 93.7 fl (80.0-94.0); MEAN CORPUSCULAR HGB 29.9 pg (27.0-31.0); MEAN CORPUSCULAR HGB CONC 31.9 g/dl (33.0-37.0); MEAN PLATELET VOLUME 10.3 fl (9.6-12.3); MONO # 0.5 10*3/uL (0.1-1.0); MONO % 2.5 % (3.0-9.0); NEUT # 16.4 10*3/uL (2.3-7.9); NEUT % 88.9 % (47.0-73.0); PLATELET COUNT AUTOMATED 194 10*3/uL (130-400); RED BLOOD COUNT 3.48 10*6/uL (4.50-5.90); RED CELL DISTRI WIDTH 13.4 % (0-14.5); WHITE BLOOD COUNT 18.4 10*3/uL (4.8-10.8)
[2018-03-10 06:26] LABS: HEMOGLOBIN 10.4 g/dl (14.0-18.0)
[2018-03-10 06:52] LABS: ALBUMIN 2.8 gm/dl (3.1-4.5); CREATININE 6.3 mg/dL (0.70-1.30); PHOSPHOROUS 6.5 mg/dL (2.5-4.9); POTASSIUM 4.6 mmol/L (3.5-5.1)
[2018-03-10 06:53] LABS: TOTAL PROTEIN 7.7 gm/dL (6.4-8.2)
[2018-03-11] VITALS: BP 117/61
[2018-03-11 04:00] VITALS: BP 132/69
[2018-03-11 04:51] LABS: HEMOGLOBIN 9.9 g/dl (14.0-18.0); MEAN CELL VOLUME 91.7 fl (80.0-94.0); MEAN CORPUSCULAR HGB 29.3 pg (27.0-31.0); MEAN CORPUSCULAR HGB CONC 31.9 g/dl (33.0-37.0); PLATELET COUNT AUTOMATED 208 10*3/uL (130-400); RED BLOOD COUNT 3.38 10*6/uL (4.50-5.90); RED CELL DISTRI WIDTH 13.2 % (0-14.5); WHITE BLOOD COUNT 20.3 10*3/uL (4.8-10.8)
[2018-03-11 05:12] LABS: ALBUMIN 2.5 gm/dl (3.1-4.5); CREATININE 6.74 mg/dL (0.70-1.30); PHOSPHOROUS 5.5 mg/dL (2.5-4.9); POTASSIUM 4.3 mmol/L (3.5-5.1)
[2018-03-11 05:49] LABS: TOTAL CELLS COUNTED 100 #CELLS
[2018-03-11 05:50] LABS: PLATELET SUFFICIENCY NORMAL (NORMAL); POLYCHROMASIA SLIGHT; ROULEAUX MODERATE
[2018-03-11 08:00] VITALS: BP 126/70
[2018-03-11 12:00] VITALS: BP 108/80
[2018-03-11 16:00] VITALS: BP 132/73
[2018-03-11 19:26] LABS: BILIRUBIN NEGATIVE (NEGATIVE); BLOOD 1+ (NEGATIVE); CLARITY SL CLOUDY (CLEAR); COLOR YELLOW (YELLOW); GLUCOSE 2+ (NEGATIVE); KETONE NEGATIVE (NEGATIVE); LEUKO ESTERASE NEGATIVE (NEGATIVE); NITRITE NEGATIVE (NEGATIVE); SPECIFIC GRAVITY 1.025 (1.005-1.030); UROBILINOGEN 0.2 E.U./dl (0.2-1.0)
[2018-03-11 19:35] LABS: BACTERIA 2+; EPITHELIAL CELLS 0-2; WBC 0-2 wbc/hpf (0-5)
[2018-03-11 20:00] VITALS: BP 105/46
[2018-03-12] VITALS: BP 115/54
[2018-03-12 06:18] LABS: HEMATOCRIT 31.4 % (42.0-52.0); MEAN CELL VOLUME 92.1 fl (80.0-94.0); MEAN CORPUSCULAR HGB 29.3 pg (27.0-31.0); MEAN CORPUSCULAR HGB CONC 31.8 g/dl (33.0-37.0); MEAN PLATELET VOLUME 11.4 fl (9.6-12.3); PLATELET COUNT AUTOMATED 245 10*3/uL (130-400); RED BLOOD COUNT 3.41 10*6/uL (4.50-5.90); RED CELL DISTRI WIDTH 13.6 % (0-14.5); WHITE BLOOD COUNT 19.7 10*3/uL (4.8-10.8)
[2018-03-12 06:41] LABS: CREATININE 5.82 mg/dL (0.70-1.30); POTASSIUM 3.9 mmol/L (3.5-5.1)
[2018-03-12 06:53] LABS: PLATELET SUFFICIENCY NORMAL (NORMAL); TOTAL CELLS COUNTED 100 #CELLS
[2018-03-12 16:00] VITALS: BP 118/78
[2018-03-12 20:00] VITALS: BP 118/64
[2018-03-13] VITALS: BP 135/71
[2018-03-13 06:42] LABS: HEMATOCRIT 27.8 % (42.0-52.0); HEMOGLOBIN 8.9 g/dl (14.0-18.0); MEAN CELL VOLUME 92.7 fl (80.0-94.0); MEAN CORPUSCULAR HGB 29.7 pg (27.0-31.0); MEAN PLATELET VOLUME 10.5 fl (9.6-12.3); PLATELET COUNT AUTOMATED 230 10*3/uL (130-400); RED CELL DISTRI WIDTH 13.8 % (0-14.5); WHITE BLOOD COUNT 14.9 10*3/uL (4.8-10.8)
[2018-03-13 06:51] LABS: CREATININE 6.28 mg/dL (0.70-1.30); POTASSIUM 3.5 mmol/L (3.5-5.1)
[2018-03-13 07:28] LABS: TOTAL CELLS COUNTED 100 #CELLS
[2018-03-13 07:29] LABS: PLATELET SUFFICIENCY NORMAL (NORMAL)
[2018-03-13 12:00] VITALS: BP 121/61
[2018-03-13 14:40] VITALS: BP 115/57
[2018-03-13 15:15] VITALS: BP 116/69
[2018-03-13 16:00] VITALS: BP 123/77
[2018-03-13 20:00] VITALS: BP 112/73
[2018-03-14] VITALS (10 sets, daily range): BP systolic 109–169; BP diastolic 58–89
[2018-03-14 06:17] LABS: HEMOGLOBIN 9.5 g/dl (14.0-18.0); MEAN CELL VOLUME 93.9 fl (80.0-94.0); MEAN CORPUSCULAR HGB 28.8 pg (27.0-31.0); MEAN CORPUSCULAR HGB CONC 30.6 g/dl (33.0-37.0); MEAN PLATELET VOLUME 10.8 fl (9.6-12.3); PLATELET COUNT AUTOMATED 254 10*3/uL (130-400); RED CELL DISTRI WIDTH 13.7 % (0-14.5); WHITE BLOOD COUNT 18.3 10*3/uL (4.8-10.8)
[2018-03-14 06:28] LABS: ALBUMIN 1.9 gm/dl (3.1-4.5); CREATININE 5.12 mg/dL (0.70-1.30); PHOSPHOROUS 5.9 mg/dL (2.5-4.9); POTASSIUM 3.4 mmol/L (3.5-5.1); TOTAL PROTEIN 7.8 gm/dL (6.4-8.2)
[2018-03-14 07:25] LABS: BASOPHILS 1 % (0-1); PLASMA CELL 2 % (0-0); TOTAL CELLS COUNTED 100 #CELLS; TOXIC GRANULATION SLIGHT
[2018-03-14 07:26] LABS: PLATELET SUFFICIENCY NORMAL (NORMAL); POLYCHROMASIA SLIGHT; ROULEAUX MODERATE
[2018-03-14 10:42] LABS: CREATININE 5.7 mg/dL (0.70-1.30); POTASSIUM 3.9 mmol/L (3.5-5.1)
[2018-03-14 16:58] LABS: ABG HCO3 22.4 mmol/l (22-26); ABG O2 SATURATION 97.2 % (95-97); ARTERIAL BLOOD GAS PCO2 66.3 mmHg (35-45)
[2018-03-14 17:00] LABS: ABG BASE EXCESS -6.3 mmol/L (-2.0-2.0); ARTERIAL BLOOD GAS PH 7.16 (7.35-7.45)
[2018-03-14 19:49] LABS: ABG BASE EXCESS -5.3 mmol/L (-2.0-2.0); ABG HCO3 20.5 mmol/l (22-26); ABG O2 SATURATION 96.1 % (95-97); ARTERIAL BLOOD GAS PCO2 45.9 mmHg (35-45); ARTERIAL BLOOD GAS PH 7.278 (7.35-7.45); ARTERIAL BLOOD GAS PO2 91.5 mmHg (80-90)
[2018-03-15] VITALS (10 sets, daily range): BP systolic 111–149; BP diastolic 45–91
[2018-03-15 00:02] LABS: ANAEROBE RESULT 1 Bacteroides vulgatus (.)
[2018-03-15 05:59] LABS: HEMATOCRIT 30.5 % (42.0-52.0); HEMOGLOBIN 9.5 g/dl (14.0-18.0); MEAN CELL VOLUME 94.4 fl (80.0-94.0); MEAN CORPUSCULAR HGB 29.4 pg (27.0-31.0); MEAN CORPUSCULAR HGB CONC 31.1 g/dl (33.0-37.0); MEAN PLATELET VOLUME 10.5 fl (9.6-12.3); PLATELET COUNT AUTOMATED 323 10*3/uL (130-400); RED BLOOD COUNT 3.23 10*6/uL (4.50-5.90); RED CELL DISTRI WIDTH 13.3 % (0-14.5); WHITE BLOOD COUNT 19.2 10*3/uL (4.8-10.8)
[2018-03-15 06:03] LABS: CREATININE 6.07 mg/dL (0.70-1.30); POTASSIUM 4.6 mmol/L (3.5-5.1)
[2018-03-15 06:50] LABS: PLATELET SUFFICIENCY NORMAL (NORMAL); POLYCHROMASIA SLIGHT; ROULEAUX MODERATE; TOTAL CELLS COUNTED 100 #CELLS
[2018-03-15 08:02] LABS: ARTERIAL BLOOD GAS PCO2 35.3 mmHg (35-45); ARTERIAL BLOOD GAS PH 7.345 (7.35-7.45)
[2018-03-15 08:04] LABS: ABG BASE EXCESS -5.7 mmol/L (-2.0-2.0)
[2018-03-15 16:51] LABS: ABG BASE EXCESS 1.4 mmol/L (-2.0-2.0); ABG HCO3 24.9 mmol/l (22-26); ABG O2 SATURATION 94.6 % (95-97); ARTERIAL BLOOD GAS PCO2 34.7 mmHg (35-45); ARTERIAL BLOOD GAS PH 7.463 (7.35-7.45); ARTERIAL BLOOD GAS PO2 65.7 mmHg (80-90)
[2018-03-16] VITALS: BP 147/75
[2018-03-16 04:00] VITALS: BP 130/70
[2018-03-16 05:13] LABS: HEMATOCRIT 29.7 % (42.0-52.0); HEMOGLOBIN 9.5 g/dl (14.0-18.0); MEAN CELL VOLUME 92.5 fl (80.0-94.0); MEAN CORPUSCULAR HGB 29.6 pg (27.0-31.0); MEAN PLATELET VOLUME 10.1 fl (9.6-12.3); NUCLEATED RED BLOOD CELL 0.2 % (0.0-0.0); PLATELET COUNT AUTOMATED 342 10*3/uL (130-400); RED BLOOD COUNT 3.21 10*6/uL (4.50-5.90); RED CELL DISTRI WIDTH 13.8 % (0-14.5); WHITE BLOOD COUNT 15.8 10*3/uL (4.8-10.8)
[2018-03-16 05:30] LABS: ALBUMIN 1.9 gm/dl (3.1-4.5); CREATININE 3.95 mg/dL (0.70-1.30); TOTAL PROTEIN 7.9 gm/dL (6.4-8.2)
[2018-03-16 05:35] LABS: POTASSIUM 3.4 mmol/L (3.5-5.1)
[2018-03-16 06:20] LABS: PLATELET SUFFICIENCY NORMAL (NORMAL); POLYCHROMASIA SLIGHT; ROULEAUX MODERATE; TOTAL CELLS COUNTED 100 #CELLS
[2018-03-16 08:00] VITALS: BP 143/71
[2018-03-16 12:00] VITALS: BP 140/70
[2018-03-16 16:00] VITALS: BP 142/68
[2018-03-16 20:00] VITALS: BP 93/63
[2018-03-17] VITALS: BP 130/51
[2018-03-17 04:00] VITALS: BP 133/58
[2018-03-17 06:12] LABS: HEMATOCRIT 29.5 % (42.0-52.0); HEMOGLOBIN 9.4 g/dl (14.0-18.0); MEAN CELL VOLUME 92.8 fl (80.0-94.0); MEAN CORPUSCULAR HGB 29.6 pg (27.0-31.0); MEAN CORPUSCULAR HGB CONC 31.9 g/dl (33.0-37.0); MEAN PLATELET VOLUME 10.5 fl (9.6-12.3); NUCLEATED RED BLOOD CELL 0.3 % (0.0-0.0); PLATELET COUNT AUTOMATED 382 10*3/uL (130-400); RED BLOOD COUNT 3.18 10*6/uL (4.50-5.90); WHITE BLOOD COUNT 15.9 10*3/uL (4.8-10.8)
[2018-03-17 06:16] LABS: POTASSIUM 3.4 mmol/L (3.5-5.1)
[2018-03-17 06:29] LABS: CREATININE 5.05 mg/dL (0.70-1.30); PHOSPHOROUS 7.2 mg/dL (2.5-4.9); TOTAL PROTEIN 7.8 gm/dL (6.4-8.2)
[2018-03-17 07:05] LABS: PLATELET SUFFICIENCY NORMAL (NORMAL); TOTAL CELLS COUNTED 100 #CELLS
[2018-03-17 07:06] LABS: POLYCHROMASIA SLIGHT
[2018-03-17 07:07] LABS: ROULEAUX MODERATE
[2018-03-17 08:00] VITALS: BP 134/76
[2018-03-17 12:00] VITALS: BP 129/80
[2018-03-17 16:00] VITALS: BP 127/67
[2018-03-17 20:00] VITALS: BP 117/67
[2018-03-18] VITALS: BP 131/58
[2018-03-18 04:00] VITALS: BP 126/56
[2018-03-18 05:48] LABS: ALBUMIN 1.9 gm/dl (3.1-4.5); CREATININE 5.42 mg/dL (0.70-1.30); POTASSIUM 3.4 mmol/L (3.5-5.1); TOTAL PROTEIN 7.6 gm/dL (6.4-8.2)
[2018-03-18 05:51] LABS: HEMATOCRIT 28.6 % (42.0-52.0); HEMOGLOBIN 9.1 g/dl (14.0-18.0); MEAN CELL VOLUME 93.2 fl (80.0-94.0); MEAN CORPUSCULAR HGB 29.6 pg (27.0-31.0); MEAN CORPUSCULAR HGB CONC 31.8 g/dl (33.0-37.0); MEAN PLATELET VOLUME 10.3 fl (9.6-12.3); PLATELET COUNT AUTOMATED 421 10*3/uL (130-400); RED BLOOD COUNT 3.07 10*6/uL (4.50-5.90); RED CELL DISTRI WIDTH 13.8 % (0-14.5)
[2018-03-18 06:54] LABS: TOTAL CELLS COUNTED 100 #CELLS
[2018-03-18 06:57] LABS: POLYCHROMASIA SLIGHT; ROULEAUX MODERATE
[2018-03-18 06:58] LABS: PLATELET SUFFICIENCY HIGH (NORMAL)
[2018-03-18 08:00] VITALS: BP 136/46
[2018-03-18 12:00] VITALS: BP 126/45
[2018-03-18 16:00] VITALS: BP 122/71
[2018-03-18 20:00] VITALS: BP 118/65
[2018-03-19] VITALS: BP 118/64
[2018-03-19 04:00] VITALS: BP 119/59
[2018-03-19 04:25] LABS: HEMATOCRIT 31.5 % (42.0-52.0); HEMOGLOBIN 9.9 g/dl (14.0-18.0); MEAN CELL VOLUME 94.3 fl (80.0-94.0); MEAN CORPUSCULAR HGB 29.6 pg (27.0-31.0); MEAN CORPUSCULAR HGB CONC 31.4 g/dl (33.0-37.0); MEAN PLATELET VOLUME 9.2 fl (9.6-12.3); PLATELET COUNT AUTOMATED 444 10*3/uL (130-400); RED BLOOD COUNT 3.34 10*6/uL (4.50-5.90); RED CELL DISTRI WIDTH 13.9 % (0-14.5); WHITE BLOOD COUNT 18.8 10*3/uL (4.8-10.8)
[2018-03-19 04:40] LABS: CREATININE 4.32 mg/dL (0.70-1.30); POTASSIUM 3.9 mmol/L (3.5-5.1)
[2018-03-19 04:41] LABS: PHOSPHOROUS 5.8 mg/dL (2.5-4.9)
[2018-03-19 04:47] LABS: TOTAL CELLS COUNTED 100 #CELLS
[2018-03-19 04:48] LABS: PLATELET SUFFICIENCY NORMAL (NORMAL)
[2018-03-19 08:00] VITALS: BP 108/67
[2018-03-19 12:00] VITALS: BP 118/75
[2018-03-19 16:00] VITALS: BP 118/75; BP 126/70
[2018-03-19 20:00] VITALS: BP 127/61
[2018-03-20] VITALS: BP 122/71
[2018-03-20 06:58] LABS: HEMATOCRIT 29.1 % (42.0-52.0); MEAN CELL VOLUME 93.9 fl (80.0-94.0); MEAN CORPUSCULAR HGB CONC 30.9 g/dl (33.0-37.0); MEAN PLATELET VOLUME 10.1 fl (9.6-12.3); PLATELET COUNT AUTOMATED 472 10*3/uL (130-400); RED CELL DISTRI WIDTH 13.9 % (0-14.5)
[2018-03-20 07:18] LABS: CREATININE 4.98 mg/dL (0.70-1.30); PHOSPHOROUS 6.1 mg/dL (2.5-4.9); POTASSIUM 3.4 mmol/L (3.5-5.1)
[2018-03-20 07:34] LABS: PLATELET SUFFICIENCY HIGH (NORMAL); POLYCHROMASIA SLIGHT; ROULEAUX MODERATE; TOTAL CELLS COUNTED 100 #CELLS
[2018-03-20 08:00] VITALS: BP 145/74
[2018-03-20 12:00] VITALS: BP 130/88
[2018-03-20 16:00] VITALS: BP 122/68
[2018-03-20 20:00] VITALS: BP 115/61
[2018-03-21] VITALS: BP 123/60
[2018-03-21 06:37] LABS: HEMATOCRIT 29.4 % (42.0-52.0); HEMOGLOBIN 9.4 g/dl (14.0-18.0); MEAN CELL VOLUME 93.6 fl (80.0-94.0); MEAN CORPUSCULAR HGB 29.9 pg (27.0-31.0); MEAN PLATELET VOLUME 10.1 fl (9.6-12.3); PLATELET COUNT AUTOMATED 508 10*3/uL (130-400); RED BLOOD COUNT 3.14 10*6/uL (4.50-5.90); RED CELL DISTRI WIDTH 14.1 % (0-14.5); WHITE BLOOD COUNT 15.9 10*3/uL (4.8-10.8)
[2018-03-21 07:04] LABS: CREATININE 4.76 mg/dL (0.70-1.30); POTASSIUM 3.3 mmol/L (3.5-5.1)
[2018-03-21 07:18] LABS: TOTAL CELLS COUNTED 100 #CELLS
[2018-03-21 07:19] LABS: PLATELET SUFFICIENCY HIGH (NORMAL)
[2018-03-21] MEDS ORDERED: MYLICON, MYLANT80 MG PO (10:55)
[2018-03-21] MEDS ORDERED: CALCIUM ACETAT667 MG PO (10:55)
[2018-03-21] MEDS ORDERED: DOK COLACE100 MG PO (10:55)
[2018-03-21] MEDS ORDERED: FLAGYL250 MG PO (10:56)
[2018-03-21] MEDS ORDERED: AUGMENTIN 875875 MG PO (10:56)
[2018-03-21] MEDS ORDERED: PERCOCET 7.5-31 EACH PO (11:05)
== END 2018-03-21 12:15 | disposition home health service (06) | DRG 853 ==
LOC: ED 07:27 → EDHOLD 09:13 → ICCU 09:13 → 5E 09:13 → ICCU 03-10 12:54 → 4E 03-11 13:51 → ICCU 03-13 14:41 → 4E 03-19 18:40
PROVIDERS: Emergency Medicine; Family Medicine; Internal Medicine; Internal Medicine Critical Care Medicine; Internal Medicine Nephrology
PROC: 0DTJ4ZZ Resection of Appendix, Percutaneous Endoscopic Approach (ICD-10-PCS; principal; 2018-03-10)
PROC: 5A1D70Z Performance of Urinary Filtration, Intermittent, Less than 6 Hours Per Day (ICD-10-PCS; 2018-03-11)
PROC: 5A1D70Z Performance of Urinary Filtration, Intermittent, Less than 6 Hours Per Day (ICD-10-PCS; 2018-03-13)
PROC: 5A1935Z Respiratory Ventilation, Less than 24 Consecutive Hours (ICD-10-PCS; 2018-03-14)
PROC: 0D9H40Z Drainage of Cecum with Drainage Device, Percutaneous Endoscopic Approach (ICD-10-PCS; 2018-03-14)
PROC: 5A1D70Z Performance of Urinary Filtration, Intermittent, Less than 6 Hours Per Day (ICD-10-PCS; 2018-03-14)
PROC: 0BH17EZ Insertion of Endotracheal Airway into Trachea, Via Natural or Artificial Opening (ICD-10-PCS; 2018-03-14)
PROC: 5A1D70Z Performance of Urinary Filtration, Intermittent, Less than 6 Hours Per Day (ICD-10-PCS; 2018-03-15)
PROC: 5A09357 Assistance with Respiratory Ventilation, Less than 24 Consecutive Hours, Continuous Positive Airway Pressure (ICD-10-PCS; 2018-03-15)
PROC: 5A09357 Assistance with Respiratory Ventilation, Less than 24 Consecutive Hours, Continuous Positive Airway Pressure (ICD-10-PCS; 2018-03-16)
PROC: 5A1D70Z Performance of Urinary Filtration, Intermittent, Less than 6 Hours Per Day (ICD-10-PCS; 2018-03-18)
PROC: 5A09357 Assistance with Respiratory Ventilation, Less than 24 Consecutive Hours, Continuous Positive Airway Pressure (ICD-10-PCS; 2018-03-18)
PROC: 5A1D70Z Performance of Urinary Filtration, Intermittent, Less than 6 Hours Per Day (ICD-10-PCS; 2018-03-20)
DX: A41.9 Sepsis, unspecified organism (principal); N18.6 End stage renal disease; J95.821 Acute postprocedural respiratory failure; K35.33 Acute appendicitis with perforation, localized peritonitis, and gangrene, with abscess; E87.1 Hypo-osmolality and hyponatremia; I13.2 Hypertensive heart and chronic kidney disease with heart failure and with stage 5 chronic kidney disease, or end stage renal disease; I50.32 Chronic diastolic (congestive) heart failure; Z68.41 Body mass index [BMI] 40.0-44.9, adult; K38.1 Appendicular concretions; E11.69 Type 2 diabetes mellitus with other specified complication; E78.5 Hyperlipidemia, unspecified; E11.21 Type 2 diabetes mellitus with diabetic nephropathy; E11.40 Type 2 diabetes mellitus with diabetic neuropathy, unspecified; E66.01 Morbid (severe) obesity due to excess calories; G89.29 Other chronic pain; K59.00 Constipation, unspecified; M25.511 Pain in right shoulder; Y83.8 Other surgical procedures as the cause of abnormal reaction of the patient, or of later complication, without mention of misadventure at the time of the procedure; Y92.238 Other place in hospital as the place of occurrence of the external cause; G47.33 Obstructive sleep apnea (adult) (pediatric); D63.8 Anemia in other chronic diseases classified elsewhere; H54.61 Unqualified visual loss, right eye, normal vision left eye; E83.39 Other disorders of phosphorus metabolism; I50.84 End stage heart failure; Z86.73 Personal history of transient ischemic attack (TIA), and cerebral infarction without residual deficits; Z99.2 Dependence on renal dialysis; Z87.891 Personal history of nicotine dependence; Z79.899 Other long term (current) drug therapy; Z79.82 Long term (current) use of aspirin; Z79.4 Long term (current) use of insulin; Z83.3 Family history of diabetes mellitus; Z80.8 Family history of malignant neoplasm of other organs or systems

== ENCOUNTER → 2018-04-02 | Outpatient (CLI) | payer MEDICARE, MEDICAID ==
[~2018-04-02] MED LIST changes: +AUGMENTIN 875875 MG PO; +CALCIUM ACETAT667 MG PO; +DOK COLACE100 MG PO; +FLAGYL250 MG PO; +HYDRALAZINE HYD50 MG PO; +INSULIN LISPRO; +INSULIN LISPRO PROTAMINE; +Lasix80 MG PO; +MYLICON, MYLANT80 MG PO; +PAXIL10 MG PO; +PERCOCET 7.5-31 EACH PO; +TRAD5TAB1 PO
== END | disposition home or self-care (01) ==
LOC: ORTHO 03:57
DX: M25.511 Pain in right shoulder (principal)

== ENCOUNTER → 2018-07-23 | Outpatient (CLI) | payer MEDICARE, MEDICAID ==
[~2018-07-23] MED LIST changes: -ASPIRIN ADULT L81 M1 PO; +ASPIRIN LITE C325 MG PO; +GUAIFEN-CODEINE5 ML PO; +PLAVIX75 M1 PO; +PROAIR HFA8.5 GM INH
== END | disposition home or self-care (01) ==
LOC: MRI 12:54
DX: M19.011 Primary osteoarthritis, right shoulder (principal); M75.121 Complete rotator cuff tear or rupture of right shoulder, not specified as traumatic; M75.41 Impingement syndrome of right shoulder; E11.9 Type 2 diabetes mellitus without complications; M75.122 Complete rotator cuff tear or rupture of left shoulder, not specified as traumatic

== ENCOUNTER → 2019-02-20 | Outpatient (CLI) | payer MEDICARE | END | disposition home or self-care (01) | LOC: RAD 09:26 | DX: J18.9 Pneumonia, unspecified organism (principal); I10 Essential (primary) hypertension; E11.9 Type 2 diabetes mellitus without complications ==

== ENCOUNTER 2019-10-21 00:14 | Emergency (ER) | payer MEDICARE ==
[~2019-10-21] VITALS: Ht 180.3 cm; Wt 145.1 kg
[2019-10-21] MEDS ORDERED: ECPIRIN325 MG PO (00:37)
[2019-10-21] MEDS ORDERED: HUMALOG MI100 UNIT/1 SQ (00:38)
[2019-10-21] MEDS ORDERED: NORCO 5-325 TA1 EACH PO (02:34)
[2019-10-21] MEDS ORDERED: CLINDAMYCIN HC300 MG PO (02:34)
== END 2019-10-21 02:30 | disposition left against medical advice (07) ==
LOC: ED 00:14
DX: K02.9 Dental caries, unspecified (principal); I10 Essential (primary) hypertension; E11.9 Type 2 diabetes mellitus without complications; E78.5 Hyperlipidemia, unspecified; Z79.899 Other long term (current) drug therapy; Z79.4 Long term (current) use of insulin; Z90.49 Acquired absence of other specified parts of digestive tract; Z86.73 Personal history of transient ischemic attack (TIA), and cerebral infarction without residual deficits

== ENCOUNTER → 2021-02-08 | Outpatient (CLI) | payer OTHER ==
[~2021-02-08] MED LIST changes: +CLINDAMYCIN HC300 MG PO; +ECPIRIN325 MG PO; +HUMALOG MI100 UNIT/1 SQ; +NORCO 5-325 TA1 EACH PO
== END | disposition home or self-care (01) ==
LOC: ORTHO 00:59
PROVIDERS: ATTEND Orthopaedic Surgery
DX: M25.512 Pain in left shoulder (principal)